=== PATIENT | female | born 1950 | race Caucasian/White ===

== ENCOUNTER 2020-06-22 18:47 | Emergency (ER) | payer MEDICARE ==
[2020-06-22 19:38] LABS: HEMOGLOBIN 15.1 gm/dl (12.3-15.3); RED BLOOD COUNT 4.9 M/UL (4.00-5.10); WHITE BLOOD COUNT 9.2 K/UL (4.5-11.0)
[2020-06-22 20:00] LABS: BUN/CREATININE RATIO 22 (0-10)
== END 2020-06-23 01:30 | disposition short-term general hospital (02) ==
LOC: ER1 18:47 → CDU 23:10 → ER1 23:10
PROVIDERS: Emergency Medicine
DX: J96.01 Acute respiratory failure with hypoxia (principal); I50.9 Heart failure, unspecified; N39.0 Urinary tract infection, site not specified; E66.01 Morbid (severe) obesity due to excess calories; Z68.41 Body mass index [BMI] 40.0-44.9, adult
CPT/HCPCS: 0240U; 31500; 36600; 51702; 70450; 71045; 80053; 81001; 82550; 82553; 82803; 83690; 83735; 83874; 83880; 84484; 85025; 85610; 85730; 93005; 94002; 94660; 94760; 96374; 96375; 96376; 99285; J0330; J0696; J1100; J1940; J2405; J2704